=== PATIENT | male | born 1960 | race Caucasian/White ===

== ENCOUNTER 2022-07-21 07:02 | Outpatient (CLI) | payer MEDICARE, OTHER | END 2022-07-21 23:59 | disposition home or self-care (01) | LOC: LAB 07:02 | PROVIDERS: ATTEND Surgery | DX: Z01.812 Encounter for preprocedural laboratory examination (principal); Z20.822 Contact with and (suspected) exposure to COVID-19 ==

== ENCOUNTER 2022-07-23 07:42 | Day surgery (SDC) | payer MEDICARE, OTHER ==
[~2022-07-23 07:42] MED LIST: BACITRACIN ZINC OINT 15 GM TUBE ONE; BUPIVACAINE PF 0.5% 30 ML VIAL ONE; LIDOCAINE 1%-EPI 1:100,000 20 ML VIAL ONE
[2022-07-23 08:16] LABS: *BILIRUBIN,URIN NEGATIVE (NEGATIVE); *BLOOD, URINE NEGATIVE (NEGATIVE); *CLARITY,URINE CLEAR (CLEAR); *COLOR,URINE YELLOW (YELLOW); *KETONES,URINE NEGATIVE (NEGATIVE); *UROBILINOGEN,URINE 0.2 E.U./dl (NORMAL); LEUKOCYTE ESTERASE ,URINE NEGATIVE (NEGATIVE); NITRITE, URINE NEGATIVE (NEGATIVE); PH,URINE 5.5 (5.0-8.0); UGLUCOSE NEGATIVE (NEGATIVE)
[2022-07-23 08:18] LABS: HEMATOCRIT 43.6 % (36.7-47.1); MEAN CORPUSCULAR HEMOGLOBIN 30.4 uug (23.8-33.4); MEAN CORPUSCULAR VOLUME 90.9 fL (73.0-96.2); PLATELET COUNT (AUTO) 266 K/uL (152-348)
[2022-07-23 08:25] LABS: CREATININE 0.9 mg/dL (0.6-1.3); POTASSIUM 4.4 mmol/L (3.5-5.1)
[2022-07-23 08:30] LABS: BILIRUBIN,TOTAL 0.7 mg/dL (0.2-1.0); TOTAL PROTEIN, SERUM 7.5 g/dL (6.4-8.2)
[2022-07-23] MEDS ORDERED: CEFAZOLIN 2 G in IV DEXTROSE 5% 100 ML IV ONE (08:30)
[2022-07-23] MEDS ORDERED: FENTANYL CITRATE 100 MCG/2 ML AMPUL ONE ×3 (08:44→11:05)
[2022-07-23] MEDS ORDERED: GABAPENTIN 300 MG CAPSULE ONE (10:38)
[2022-07-23] MEDS ORDERED: ACETAMINOPHEN 325 MG TABLET ONE ×2 (10:39→10:40)
[2022-07-23] MEDS ORDERED: GABAPENTIN 300 MG CAPSULE PO ONE (11:00)
[2022-07-23] MEDS ORDERED: ACETAMINOPHEN 325 MG TABLET PO ONE (11:00)
[2022-07-23] MEDS ORDERED: CELECOXIB 200 MG CAPSULE PO ONE (11:00)
[2022-07-23] MEDS ORDERED: DEXAMETHASONE SOD PHOSPHATE 4 MG INJ ONE (11:10)
[2022-07-23] MEDS ORDERED: LIDOCAINE-MPF 2% 5 ML VIAL ONE (11:10)
[2022-07-23] MEDS ORDERED: PROPOFOL 200 MG/20 ML BOTTLE ONE (11:10)
[2022-07-23] MEDS ORDERED: SUCCINYLCHOLINE CHLORIDE 200 MG/10 ML VIAL ONE (11:10)
[2022-07-23] MEDS ORDERED: ONDANSETRON 4 MG/2 ML VIAL ONE (11:10)
== END 2022-07-23 12:30 | disposition home or self-care (01) ==
LOC: DS 07:42
PROVIDERS: ATTEND Surgery
DX: K64.8 Other hemorrhoids (principal); K64.2 Third degree hemorrhoids; K60.2 Anal fissure, unspecified; E03.9 Hypothyroidism, unspecified; N40.0 Benign prostatic hyperplasia without lower urinary tract symptoms; M19.90 Unspecified osteoarthritis, unspecified site; Z79.899 Other long term (current) drug therapy; Z98.890 Other specified postprocedural states; Z86.010 Personal history of colon polyps
CPT/HCPCS: 46260; 71045; 80053; 81003; 85025; 85730; 36415; J3490 ×3; J0690; J1100; J2405; J0330; J3010 ×3; J7120; A4649; A4663